=== PATIENT | female | born 1955 | race Caucasian/White ===

== ENCOUNTER 2017-12-14 22:28 | Inpatient (IN) | payer BC ==
[~2017-12-14] VITALS: Ht 162.6 cm; Wt 48.5 kg
[~2017-12-14 22:28] MED LIST: ALBU18HF2; METHADONE PO
[2017-12-14 23:30] VITALS: BP 133/69
[2017-12-14] MEDS ORDERED: VANCOMYCIN 1 GM in IV NS 0.9% 250 ML IV SCH (23:30)
[2017-12-14] MEDS ORDERED: Z GUARD REMEDY 2 OZ OINT TP PRN (23:30)
[2017-12-14] MEDS ORDERED: MORPHINE SULFATE INJ 2 MG/ML DISP.SYRIN IV PRN (23:30)
[2017-12-14] MEDS ORDERED: MAGNESIUM HYDROXIDE 30 ML UDC PO PRN (23:30)
--- NOTE | 2017-12-14 23:30 | NUR ---
RN NOTES RECEIVED PATIENT FROM [facility] FOR DX LEFT LEG ULCER AND INFECTED HARDWARE. AO X 3, ABLE TO MAKE NEEDS KNOWN. NO ACUTE DISTRESS NOTED. DENIES ANY PAIN AT THIS TIME. NEW IV STARTED ON LEFT HAND GAUGE 22. MARIA DE JESUS MIDLINE NOT PATENT WHEN FLUSHED; REMOVED. SKIN ASSESSMENT DONE; DRESSINGS APPLIED TO OPEN AREAS. SAFETY REMINDERS GIVEN. ORIENTED TO ROOM AND UNIT. ON LOW BED WITH BILATERAL UPPER SIDE RAILS UP. CALL DRISCOLL WITHIN EASY REACH. WILL CONTINUE TO MONITOR.
[2017-12-15 00:14] LABS: BASOPHILS # (AUTO) 0.1 /CMM (0.0-0.2); BASOPHILS % (AUTO) 0.7 % (0.0-2.0); EOSINOPHILS % (AUTO) 0.8 % (0.0-6.0); HEMATOCRIT 31 % (33-45); HEMOGLOBIN 10.6 g/dL (11.5-14.8); LYMPHOCYTES % (AUTO) 23.2 % (20.0-44.0); MEAN CORPUSCULAR HGB CONC 35 g/dl (31.0-36.0); MEAN CORPUSCULAR VOLUME 85 fL (82-100); MONOCYTES # (AUTO) 0.7 /CMM (0.1-1.30); MONOCYTES % (AUTO) 7.9 % (2.0-12.0); NEUTROPHILS # (AUTO) 5.7 /CMM (1.8-8.9); NEUTROPHILS % (AUTO) 67.4 % (43.0-81.0); PLATELET COUNT (AUTO) 631 /CMM (150-450); RDW COEFFICIENT OF VARIATION 12.6 (11.5-15.0); RED BLOOD CELL COUNT(AUTO) 3.63 MIL/uL (4.0-5.2); WHITE BLOOD COUNT (AUTO) 8.6 K/uL (4.3-11.0)
[2017-12-15 00:26] LABS: ALBUMIN 1.9 g/dL (3.4-5.0); BILIRUBIN,TOTAL 0.2 mg/dL (0.2-1.0); CALCIUM, SERUM 8.2 mg/dL (8.5-10.1); CREATININE 0.7 mg/dL (0.6-1.3); MAGNESIUM 1.7 mg/dL (1.8-2.4); PHOSPHORUS 2.5 mg/dL (2.5-4.9); TOTAL PROTEIN, SERUM 8.1 g/dL (6.4-8.2)
[2017-12-15 00:29] LABS: POTASSIUM 2.7 mmol/L (3.5-5.1)
--- NOTE | 2017-12-15 02:10 | NUR ---
RN NOTES K LEVEL RELAYED TO DR. OSEGUERA WITH NEW ORDER FOR KCL 40 mEq PO X 2 ONE HOUR APART; NOTED AND CARRIED OUT.
[2017-12-15] MEDS ORDERED: POTASSIUM CHLORIDE 20 MEQ TAB.PRT.SR PO ONE ×4 (02:30→11:00)
--- NOTE | 2017-12-15 02:30 | NUR ---
RN NOTES RELAYED MAG 1.[address] OSEGUERA WITH NO NEW ORDERS.
[2017-12-15] MEDS: IV NS 0.9% 1,000 ML IV PRN ×2 (02:39→23:28)
[2017-12-15] MEDS: ONDANSETRON HCL/PF 4 MG/2 ML VIAL IVP PRN (03:39)
[2017-12-15] MEDS ORDERED: PIPERACILLIN /TAZOBACTAM 3.375 G VIAL IV ONE (04:55)
[2017-12-15] MEDS ORDERED: PIPERACILLIN /TAZOBACTAM 3.375 G in IV D5W 100 ML IV SCH (05:00)
--- NOTE | 2017-12-15 06:30 | NUR ---
RN NOTES PATIENT ASLEEP, EASILY AROUSABLE. RESPIRATIONS EVEN. NO SIGNS OF PAIN NOTED. NEEDS ATTENDED. SAFETY PRECAUTIONS AND COMFORT MEASURES IN PLACE. WILL GIVE REPORT TO DAY SHIFT FOR CONTINUITY OF CARE.
[2017-12-15 06:39] LABS: INR 0.95 (0.87-1.13)
[2017-12-15 06:49] LABS: CREATININE 0.6 mg/dL (0.6-1.3); PHOSPHORUS 3.5 mg/dL (2.5-4.9)
[2017-12-15 06:51] LABS: MAGNESIUM 1.1 mg/dL (1.8-2.4); POTASSIUM 2.6 mmol/L (3.5-5.1)
[2017-12-15 06:55] LABS: THYROID STIMULATING HORMONE 2.178 uIU/mL (0.358-3.74)
[2017-12-15 07:00] LABS: BASOPHILS % (AUTO) 0.5 % (0.0-2.0); EOSINOPHILS % (AUTO) 0.9 % (0.0-6.0); HEMATOCRIT 30 % (33-45); HEMOGLOBIN 10.1 g/dL (11.5-14.8); LYMPHOCYTES # (AUTO) 1.7 /CMM (0.8-4.8); LYMPHOCYTES % (AUTO) 23.6 % (20.0-44.0); MEAN CORPUSCULAR HGB CONC 34 g/dl (31.0-36.0); MEAN CORPUSCULAR VOLUME 85 fL (82-100); MONOCYTES # (AUTO) 0.4 /CMM (0.1-1.30); MONOCYTES % (AUTO) 5.7 % (2.0-12.0); NEUTROPHILS % (AUTO) 69.3 % (43.0-81.0); PLATELET COUNT (AUTO) 555 /CMM (150-450); RDW COEFFICIENT OF VARIATION 13.7 (11.5-15.0); RED BLOOD CELL COUNT(AUTO) 3.55 MIL/uL (4.0-5.2); WHITE BLOOD COUNT (AUTO) 7.2 K/uL (4.3-11.0)
--- NOTE | 2017-12-15 07:20 | NUR ---
RN OPEN NOTES RECEIVED REPORT FROM LOCK SETTER RN. PATIENT IS IN BED. NO SIGNS AND SYMPTOMS OF DISTRESS. BED IN LOW POSITION, LOCKED AND TWO SIDE RAILS ARE UP. CALL LIGHT WITHIN REACH FOR SAFETY. WILL CONTINUE TO MONITOR PATIENT
[2017-12-15] MEDS ORDERED: FEE PK DOSING 1 MIN EA MC ONE (07:30)
--- NOTE | 2017-12-15 07:45 | NUR ---
RN NOTES RELAYED LAB RESULTS (K 2.6; MAG 1.1) TO DR. SAMSON WITH NEW ORDERS FOR MAG 4 GRAMS IV AND KCL 80 mEq PO; NOTED AND CARRIED OUT.
[2017-12-15] MEDS ORDERED: ZINC220C8 PO (07:52)
[2017-12-15] MEDS ORDERED: MAGN64TA13 PO (07:52)
[2017-12-15] MEDS ORDERED: ZOLP5TAB2 PO (07:52)
[2017-12-15] MEDS ORDERED: METH10TA2 PO (07:52)
[2017-12-15] MEDS ORDERED: APIX5TAB PO (07:52)
[2017-12-15] MEDS ORDERED: CHOL100044 PO (07:52)
[2017-12-15] MEDS ORDERED: ASCO500T9 PO (07:52)
[2017-12-15] MEDS ORDERED: MULT-24 PO (07:52)
[2017-12-15] MEDS ORDERED: Magnesium 1GM/D5W 100ML PREMIX PIGGYBACK IV ONE ×4 (08:00→11:00)
[2017-12-15 08:42] VITALS: BP 135/83
[2017-12-15] MEDS: VANCOMYCIN 0.75 GM in IV D5W 250 ML IV SCH ×2 (08:51→20:55)
[2017-12-15] MEDS ORDERED: METHADONE HCL 10 MG TABLET PO SCH (09:00)
--- NOTE | 2017-12-15 09:43 | NUR ---
WOUND CARE CONSULT: PT PRESENTS WITH LEFT LOWER LEG WOUND WITH HARDWARE EXPOSURE AND PURULENT DRAINAGE, LEFT HIP WOUNDS, RT HIP ESCHAR AND LEFT 4TH FINGER ESCHAR, ALL PRESENT ON ADMISSION. RECOMMENDATIONS MADE FOR WOUND CARE/PROTECTION AND DISCUSSED WITH NURSING STAFF. RECOMMEND SURGICAL CONSULT. PT INDEPENDENT WITH BED MOBILITY AND CONTINENT. WILL SEE PRN. DUMONT IN AGREEMENT WITH PLAN OF CARE. Addendum: 12/15/17 at 0944 by CECI ZUÑIGA WNDNU Amended: Links added.
[2017-12-15] MEDS: Magnesium 1GM/D5W 100ML PREMIX 100 ML IV SCH ×4 (10:02→13:54)
--- NOTE | 2017-12-15 10:15 | NUR ---
PATIENT REFUSED PT
[2017-12-15] MEDS: PIPERACILLIN /TAZOBACTAM 3.375 G in IV D5W 50 ML IV SCH ×3 (12:04→23:27)
--- NOTE | 2017-12-15 13:36 | NUR ---
PT AT BEDSIDE TRYING TO CONVINCE PATIENT TO WALK. PATIENT REFUSED PT THE SECOND TIME TODAY
--- NOTE | 2017-12-15 14:09 | NUR ---
Social service consult requested by Dr. Macias for homelessness and methamphetamine use. Pt. is a 62 year old female who was admitted to [facility] for cellulitis. SW and case operator Medina met with pt. bedside. Pt. is alert and oriented x 4. Pt. was cooperative with SW during the assessment. Pt. states she has been homeless for about a year and resides at an encampment by the [employer] and [facility] in [place]. Pt. was residing in an apartment prior to being homeless but was unable to pay the rent. Pt. receives approximately $900 in SSI per month. Pt. is willing to go to a board and care and pay $800 per month. Pt. is also willing to go to [facility] in [place] located at [address] [place] [address] to receive homeless and housing services. (-Fri 8:30AM to 5:00PM). Pt. denies any psychiatric diagnoses. Pt. denies alcohol use. Pt. uses heroin and methamphetamines. Pt. last use heroin a week ago. SW encouraged pt. to go to a drug program, however pt. declined. Pt. completed a drug treatment program in 1989. Pt. has a daughter named Renard in [place]. Pt. was unable to provide her number or any emergency contact at this time. Pt. is independent with her ADL's. Pt. uses a walker at times to ambulate, especially for long distance. SW to provide homeless resources to pt. prior to discharge. No other social service needs are required at this time. SW is available, if needed.
[2017-12-15 16:17] VITALS: BP 155/85
[2017-12-15] MEDS: LACTOBACILLUS RHAMNOSUS GG 1 EACH CAP.SPRINK PO SCH (16:28)
[2017-12-15] MEDS: FENTANYL PF 100MCG/2ML AMPUL IV PRN ×2 (16:29→23:29)
--- NOTE | 2017-12-15 18:49 | NUR ---
RN CLOSING NOTES PATIENT IS IN BED. AWAKE. NO SIGNS AND SYMPTOMS OF DISTRESS. ALL CARE WAS PROVIDED. PATIENT KEPT DRY AND CLEAN. BED IN LOW POSITION, LOCKED AND TWO SIDE RAILS ARE UP. CALL LIGHT WITHIN REACH FOR SAFETY. SURGERY IS ON MONDAY 8:30AM BY DR BIRD. WILL ENDORSE TO FLIGHT ENGINEER HELICOPTER NURSE.
--- NOTE | 2017-12-15 19:10 | NUR ---
MS RN NOTES RECEIVED PT IN BED, AWAKE, A/O X 4. VERBALLY RESPONSIVE. NO SOB NOR DISTRESS NOTED. RESPIRATION IS EVEN AND UNLABORED. IV SITE ON LEFT HAND INTACT AND PATENT, IVF INFUSING WELL. WITH ONGOING TX TO LEFT ANTERIOR LOWER LEG WOUND,LEFT HIP WOUNDS AND RIGHT HIP ESCHARS HIMANSHU WELL. NO C/O PAIN OR DISCOMFORT AT THIS TIME. ALL NEEDS ATTENDED AND MET. KEPT COMFORTABLE. SAFETY PRECAUTIONS OBSERVED. CALL LIGHT WITHIN REACH. WILL CONT TO MONITOR.
[2017-12-15 20:00] VITALS: BP_SYST 140; BP_SYST 150; BP_DIAS 80
[2017-12-15] MEDS: ZOLPIDEM TARTRATE 5 MG TABLET PO PRN (21:24)
[2017-12-15] MEDS: HYDROCODONE/APAP 5/325MG 1 EACH TABLET PO PRN (22:27)
[2017-12-16] MEDS: FENTANYL PF 100MCG/2ML AMPUL IV PRN ×2 (05:09→12:04)
[2017-12-16] MEDS: PIPERACILLIN /TAZOBACTAM 3.375 G in IV D5W 50 ML IV SCH ×4 (05:20→23:53)
[2017-12-16 06:46] LABS: CALCIUM, SERUM 8.1 mg/dL (8.5-10.1); CREATININE 0.7 mg/dL (0.6-1.3)
[2017-12-16 06:55] LABS: POTASSIUM 3.7 mmol/L (3.5-5.1)
--- NOTE | 2017-12-16 06:55 | NUR ---
MS RN NOTES PT IN BED, AWAKE, A/O X 4. VERBALLY RESPONSIVE. NO SOB NOR DISTRESS NOTED. RESPIRATION IS EVEN AND UNLABORED. IV SITE ON LEFT HAND INTACT AND PATENT, IVF INFUSING WELL. WITH ONGOING TX TO LEFT ANTERIOR LOWER LEG WOUND,LEFT HIP WOUNDS AND RIGHT HIP ESCHARS HIMANSHU WELL. NO C/O PAIN OR DISCOMFORT AT THIS TIME. ALL NEEDS ATTENDED AND MET. KEPT COMFORTABLE. SAFETY PRECAUTIONS OBSERVED. CALL LIGHT WITHIN REACH. WILL ENDORSE TO NEXT SHIFT FOR GUMARO.
--- NOTE | 2017-12-16 07:00 | NUR ---
RECEIVED A CALL FROM LAB , NA: 125 ,ENDORSED TO DAY SHIFT KAREN MARTINEZ. Addendum: 12/16/17 at 0716 by LUCILLE MELÉNDEZ RN INCORRECT DOCUMENTATION.
--- NOTE | 2017-12-16 07:00 | NUR ---
RECEIVED A CALL FROM LAB , NA: 120 ,ENDORSED TO DAY SHIFT KAREN MARTINEZ.
--- NOTE | 2017-12-16 07:35 | NUR ---
RN OPEN NOTES RECEIVED REPORT FROM RNFA NURSE. PATIENT IS IN BED, ALERT AND ORIENTED TO NAME, PLACE AND TIME. PATIENT SAID: "I FEEL I AM IN WITHDRAW", WILL ADMINISTER ATIVAN. BED IN LOW POSITION, LOCKED AND TWO SIDE RAILS ARE UP, CALL LIGHT WITHIN REACH FOR SAFETY. WILL CONTINUE TO MONITOR AND ASSESS PATIENT
[2017-12-16] MEDS: LORAZEPAM INJ 2 MG/ML VIAL IV PRN ×2 (07:49→13:49)
[2017-12-16] MEDS: VANCOMYCIN 0.75 GM in IV D5W 250 ML IV SCH ×2 (07:51→20:44)
[2017-12-16] MEDS: LACTOBACILLUS RHAMNOSUS GG 1 EACH CAP.SPRINK PO SCH ×2 (07:53→17:22)
[2017-12-16 08:00] VITALS: BP 142/100
[2017-12-16] MEDS: IV NS 0.9% 1,000 ML IV PRN (15:09)
[2017-12-16 16:00] VITALS: BP 113/80
--- NOTE | 2017-12-16 19:06 | NUR ---
RN CLOSING NOTES PATIENT IS IN BED. AWAKE. NO SIGNS AND SYMPTOMS OF DISTRESS. ALL CARE WAS PROVIDED. PATIENT KEPT DRY AND CLEAN. BED IN LOW POSITION, LOCKED AND TWO SIDE RAILS ARE UP. CALL LIGHT WITHIN REACH FOR SAFETY. WILL ENDORSE TO ACLS NURSE NURSE.
[2017-12-16 20:00] VITALS: BP 114/64
[2017-12-16] MEDS: ZOLPIDEM TARTRATE 5 MG TABLET PO PRN (20:49)
[2017-12-16] MEDS: HYDROCODONE/APAP 5/325MG 1 EACH TABLET PO PRN (20:53)
[2017-12-17] MEDS: FENTANYL PF 100MCG/2ML AMPUL IV PRN ×4 (02:36→20:03)
[2017-12-17] MEDS: PIPERACILLIN /TAZOBACTAM 3.375 G in IV D5W 50 ML IV SCH ×3 (06:21→17:25)
[2017-12-17] MEDS: IV NS 0.9% 1,000 ML IV PRN (06:26)
--- NOTE | 2017-12-17 06:45 | NUR ---
MS RN NOTES AWAKE & RESPONSIVE. NOT IN ANY DISTRESS. NO SOB NOTED. DENIES ANY PAIN OR DISCOMFORT AT THIS TIME. WITH IVF INFUSING WELL. AM CARE DONE. MONITORED ACCORDINGLY. CALL LIGHT WITHIN REACH. BED IN LOWEST POSITION. SR UP X 2 FOR SAFETY. WILL ENDORSE TO NEXT SHIFT.
[2017-12-17 06:58] LABS: CALCIUM, SERUM 7.7 mg/dL (8.5-10.1); CREATININE 0.6 mg/dL (0.6-1.3); POTASSIUM 3.7 mmol/L (3.5-5.1)
--- NOTE | 2017-12-17 07:10 | NUR ---
MS RN NOTES NA LEVEL 115. NOTIFIED BONNIE LARSON GUEST ADVISOR FOR EPIC. BONNIE MADE AWARE RE PT'S CONDITION WITH NEW ORDERS MADE. ORDERS NOTED. REPORT GIVEN TO DAY SHIFT RN FOR CONTINUITY OF CARE.
--- NOTE | 2017-12-17 07:15 | NUR ---
MS RN NOTE RECEIVED REPORT FROM SAM, ENDORSED THAT SODIUM LEVEL IS 115. BIOGEOGRAPHERPAPER GRADER RELAYED LAB VALUE TO NICK NICOLE. ORDERS NOTED AND CARRIED OUT. WILL CONTINUE TO MONITOR FOR SIDE EFFECTS
--- NOTE | 2017-12-17 07:50 | NUR ---
MS RN OPENING NOTE PATIENT IS ALERT AND ORIENTED x4. NO PAIN AT THIS TIME. NO SOB OR DISTRESS NOTED. NPO AT THIS TIME FOR SURGERY THIS MORNING FOR LEFT TIBIA. ABLE TO COMMUNICATE NEEDS. IV INTACT AND PATENT NO REDNESS OR SWELLING NOTED. WILL CONTINUE TO MONITOR THROUGHOUT SHIFT
[2017-12-17] MEDS ORDERED: ANESTHESIA TRAY IN PYXIS 1 EA TRAY MC ONE (07:57)
[2017-12-17] MEDS ORDERED: BACITRACIN 50000 UNITS/VIAL ONE (07:58)
[2017-12-17 08:00] VITALS: BP 116/75
[2017-12-17] MEDS: VANCOMYCIN 0.75 GM in IV D5W 250 ML IV SCH ×2 (08:00→15:40)
--- NOTE | 2017-12-17 08:03 | NUR ---
MS RN NOTE PER MD TO INSERT CAMPBELL CATHETER. PATIENT CONSENTED FOR CAMPBELL INSERTION. PATIENT TOLERATED WELL. CAMPBELL CATHETER DRAINING WELL. WILL MONITOR URINE DRAINAGE AND FOR INFECTION. URINE SAMPLE COLLECTED.
--- NOTE | 2017-12-17 08:26 | NUR ---
MS RN NOTE PATIENT HEADED TO OR FOR SURGERY. PER ELEVATOR CONSTRUCTOR ELECTRIC NURSE BEBA TO BE GIVEN IN OR. UNABLE TO SCAN AT THIS TIME. WILL CONTINUE GUMARO WHEN PATIENT RETURNS FROM SURGERY
[2017-12-17] MEDS: LACTOBACILLUS RHAMNOSUS GG 1 EACH CAP.SPRINK PO SCH ×2 (08:30→16:44)
[2017-12-17] MEDS: HYDROCODONE/APAP 5/325MG 1 EACH TABLET PO PRN (09:32)
--- NOTE | 2017-12-17 09:34 | NUR ---
MS RN NOTE PER PATIENT CAMPBELL CATHETER REMOVED, PATIENT STATED " I TOOK OUT THE CAMPBELL BECAUSE IT WAS BOTHERING ME AND IT BECAME UNCOMFORTABLE". WILL NOTIFY
[2017-12-17 10:25] LABS: CALCIUM, SERUM 7.9 mg/dL (8.5-10.1); CREATININE 0.7 mg/dL (0.6-1.3); POTASSIUM 3.8 mmol/L (3.5-5.1)
[2017-12-17] MEDS: Magnesium 1GM/D5W 100ML PREMIX 100 ML IV SCH ×2 (10:35→11:32)
[2017-12-17] MEDS: SODIUM CHLORIDE 1000 MG TABLET.SOL PO SCH ×3 (10:35→16:48)
--- NOTE | 2017-12-17 10:45 | NUR ---
MS RN NOTE RECEIVED REPORT FROM LAB, SODIUM: 114. REPEATED LAB VALUE ENDORSE TO DR. KEYONNA DUMONT. WILL CONTINUE TO MONITOR FOR SIDE EFFECTS
[2017-12-17] MEDS: ONDANSETRON HCL/PF 4 MG/2 ML VIAL IVP PRN ×2 (10:58→17:25)
--- NOTE | 2017-12-17 11:01 | NUR ---
MS RN NOTE PATIENT HAD TWO EPISODES OF EMESIS NOTED. PATIENT STATED " IT'S FROM THE HEROIN WITHDRAWALS I THINK". PATIENT REQUESTED ANTI-NAUSEA MEDICATION, ZOFRAN 4MG IV GIVEN. WILL MONITOR FOR ANY NAUSEA OR VOMITING THROUGHOUT SHIFT.
[2017-12-17 16:00] VITALS: BP 103/55
--- NOTE | 2017-12-17 18:31 | NUR ---
MS RN CLOSING NOTE PATIENT RESTING AT THIS TIME IN BED LOCKED IN LOWEST POSITION. PATIENT HAD 2 MORE EPISODES OF EMESIS, ZOFRAN 4MG GIVEN. NO PAIN AT THIS TIME. NO SOB OR DISTRESS NOTED. CALL LIGHT WITHIN REACH AT ALL TIMES. SAFETY MEASURES IMPLEMENTED.ABLE TO COMMUNICATE NEEDS. WOUND DRESSINGS CHANGED. ALL DUE MEDICATIONS GIVEN ORDERED. ALL NURSING CARE NEEDS ATTENDED TO. IV INTACT AND PATENT WITH IV FLUIDS RUNNING AT 100 ML/HR. PER OR TO HAVE PATIENT NPO AFTER BREAKFAST. WILL ENDORSE TO MUD TEMPERER NURSE FOR GUMARO
[2017-12-17 19:59] VITALS: BP 101/64
[2017-12-17 20:00] VITALS: BP 101/64
[2017-12-17] MEDS: ZOLPIDEM TARTRATE 5 MG TABLET PO PRN (21:25)
[2017-12-18] MEDS: VANCOMYCIN 0.75 GM in IV D5W 250 ML IV SCH ×3 (00:04→17:34)
[2017-12-18] MEDS: MAG HYDROX/AL HYDROX/SIMETH 30 ML UDC PO PRN ×2 (00:04→14:57)
[2017-12-18] MEDS: PIPERACILLIN /TAZOBACTAM 3.375 G in IV D5W 50 ML IV SCH ×5 (00:05→23:28)
[2017-12-18] MEDS: FENTANYL PF 100MCG/2ML AMPUL IV PRN ×5 (00:29→16:49)
[2017-12-18] MEDS: ACETAMINOPHEN 325 MG TABLET PO PRN (03:07)
[2017-12-18] MEDS: IV NS 0.9% 1,000 ML IV PRN (04:33)
[2017-12-18 07:17] LABS: OSMOLALITY,URINE 413 mOS/kg (340-1090)
--- NOTE | 2017-12-18 07:25 | NUR ---
MS RN OPENING NOTES RECEIVED PATIENT AWAKE IN BED. A/OX4. NO ACUTE DISTRESS, NO SOB NOTED. DENIED PAIN OR DISCOMFORT AT THIS TIME. IV SITE INTACT AND PATENT. KEPT PATIENT SAFE AND COMFORTABLE. COMMODE AT BEDSIDE. SAFETY PRECAUTIONS IN PLACE. BED LOCKED/LOW POSITION, SIDERAILS UPX2, CALL LIGHT IN REACH. WILL CONTINUE TO MONITOR ACCORDINGLY.
[2017-12-18 07:57] LABS: URINE SODIUM, RANDOM 111 mmol/l (40-220)
[2017-12-18] MEDS: LACTOBACILLUS RHAMNOSUS GG 1 EACH CAP.SPRINK PO SCH ×2 (08:05→16:47)
[2017-12-18] MEDS: SODIUM CHLORIDE 1000 MG TABLET.SOL PO SCH ×3 (08:06→16:47)
[2017-12-18 08:11] VITALS: BP 110/72
[2017-12-18 08:12] LABS: CALCIUM, SERUM 7.7 mg/dL (8.5-10.1); CREATININE 0.8 mg/dL (0.6-1.3); POTASSIUM 3.7 mmol/L (3.5-5.1)
--- NOTE | 2017-12-18 08:30 | NUR ---
RN NOTES DR NEWBY ON BEDSIDE, MADE AWARE OF PATIENT'S SODIUM LEVEL OF 116. PER DR NEWBY, CANCEL SURGERY, WILL REFER TO DR MCCOY (NEPHRO). INFORMED DR NEWBY ABOUT PATIENT VOMITS EVERYTIME SHE TAKES SODIUM PILLS.
--- NOTE | 2017-12-18 09:30 | NUR ---
RN NOTES RACHEL JACKSON NP NOTIFIED REGARDING SODIUM LEVEL OF 116. PERRACHEL HE WILL NOTIFY DR BIRD
--- NOTE | 2017-12-18 09:30 | NUR ---
KAREN JACKSON,NICK AND SURGERY NOTIFIED ABOUT PATIENT'S SODIUM LEVEL OF 116. PER RACHEL, HE'LL NOTIFY DR VILLEGAS. Addendum: 12/18/17 at 1104 by ANGELINE MERCADO CORRECTION: DOUBLE ENTRY NOTES. DISREGARD THIS NOTES.
[2017-12-18] MEDS ORDERED: IV Sodium Chloride 3% 500 ML 500 ML IV ONE (12:30)
[2017-12-18 16:05] VITALS: BP 118/71
--- NOTE | 2017-12-18 19:30 | NUR ---
RN NOTE; RECEIVED PT SITTING IN BED. ALERT AND RESPONSIVE. BREATHING EVENLY. NO SOB. NAD. SKIN WARM NAD DRY. DRESSING ON THE LE CDI W/ CONTINUOUS C/O PAIN ON THE SITE. ON ONGOING IVF HYDRATION . HIMANSHU WELL. NEEDS ATTENDED. BED LOW LOCKED. CALL LIGHT WITHIN REACH WILL CONT TO MONITOR ,
--- NOTE | 2017-12-18 19:32 | NUR ---
RN CLOSING NOTES PATIENT IN STABLE CONDITION. NO ACUTE DISTRESS, NO SOB. ALL NEEDS ATTENDED AND PROVIDED. SAFETY MEASURES INITIATED. KEPT PATIENT COMFORTABLE. BED IN LOW/LOCKED POSITION, SIDERAILS UPX2, CALL LIGHT IN REACH. ENDORSED TO NIGHT RN FOR GUMARO.
[2017-12-18 19:46] VITALS: BP 109/65
[2017-12-18 20:00] VITALS: BP 109/65
[2017-12-18] MEDS: ZOLPIDEM TARTRATE 5 MG TABLET PO PRN (21:03)
--- NOTE | 2017-12-18 21:06 | NUR ---
carlosien given as ordered per pt's request for c/o insomnia. will cont to monitor ,
[2017-12-18] MEDS: HYDROCODONE/APAP 5/325MG 1 EACH TABLET PO PRN (21:34)
[2017-12-19] MEDS: VANCOMYCIN 0.75 GM in IV D5W 250 ML IV SCH ×3 (00:31→15:48)
[2017-12-19] MEDS: FENTANYL PF 100MCG/2ML AMPUL IV PRN (01:38)
--- NOTE | 2017-12-19 01:39 | NUR ---
fentanyl given as ordered per pt's request fro c/o severe ble pain. will cont to monitor ,
[2017-12-19] MEDS: HYDROCODONE/APAP 5/325MG 1 EACH TABLET PO PRN ×3 (04:23→13:38)
--- NOTE | 2017-12-19 04:23 | NUR ---
norco administered for pt's c/o 7/10 bilateral leg pain, given with sips of water.
[2017-12-19] MEDS: PIPERACILLIN /TAZOBACTAM 3.375 G in IV D5W 50 ML IV SCH ×3 (06:17→17:19)
[2017-12-19 06:40] LABS: CALCIUM, SERUM 7.9 mg/dL (8.5-10.1); CREATININE 0.6 mg/dL (0.6-1.3); POTASSIUM 4.2 mmol/L (3.5-5.1)
--- NOTE | 2017-12-19 07:30 | NUR ---
MS/RN Patient received Patient received from plant operator/shift supervisor. Remains NPO at this time for possible surgery later today. All needs attended, safety measures in place. Will continue to monitor and ensure safety.
[2017-12-19 08:00] VITALS: BP 113/70
[2017-12-19] MEDS: LACTOBACILLUS RHAMNOSUS GG 1 EACH CAP.SPRINK PO SCH ×2 (08:21→17:19)
[2017-12-19] MEDS: SODIUM CHLORIDE 1000 MG TABLET.SOL PO SCH ×4 (08:21→17:19)
--- NOTE | 2017-12-19 08:37 | NUR ---
MS/RN Robert Jones administered as ordered. Prior to administering, pharmacy called, spoke with Fredy and clarified order as per pharmacy note from yesterday, level to be checked daily. Per Fredy, okay to administer.
--- NOTE | 2017-12-19 09:45 | NUR ---
MS/RN Dr Houston Conard made aware of sodium level only rising to 119 from 116. Per MD, up to medical doctors on wherever surgery can go ahead but highly unlikely.
--- NOTE | 2017-12-19 10:30 | NUR ---
MS/RN Verbal order Order given by Dr Rivers - patient able to eat and drink and then to be NPO from midnight. Surgery cancelled for today as sodium still low at 119.
[2017-12-19] MEDS: MAG HYDROX/AL HYDROX/SIMETH 30 ML UDC PO PRN ×2 (12:04→15:51)
--- NOTE | 2017-12-19 14:36 | NUR ---
MS/RN Refused dressing change Patient refusing dressing change at this time, will attempt to get patient's agreement later this afternoon.
[2017-12-19] MEDS ORDERED: IV Sodium Chloride 3% 500 ML 500 ML IV ONE (15:30)
--- NOTE | 2017-12-19 15:30 | NUR ---
MS/RN S/B Dr Rivers Seen by Dr Rivers - to continue with 3% sodium chloride until sodium level is greater than 125. Blood to be drawn every 4 hours.
[2017-12-19] MEDS: HYDROCODONE/APAP 10/325MG 1 EA TABLET PO PRN ×2 (15:48→20:11)
[2017-12-19 16:00] VITALS: BP 118/68
--- NOTE | 2017-12-19 16:00 | NUR ---
MS/RN Additional new orders Per Fredy Tita:-increase ambien to 10mg -increase norco to 10/325mg.
--- NOTE | 2017-12-19 16:15 | NUR ---
MS/RN Na level Sodium level at 4p - 119.
--- NOTE | 2017-12-19 18:40 | NUR ---
MS/RN End note No changes at this time, all medications administered as ordered. Next sodium level to be drawn at 8p. Will endorse to vice president diversity.
--- NOTE | 2017-12-19 19:30 | NUR ---
RECEIVED PT IN BED AWAKE AND ALERT. BREATHING EVENLY. NO S/S OF WITHDRAWAL NOTED AT THIS TIME. W/ CONSTANT C/O PAIN ON BLE . NOTED W/ INFILTRATED IV SITE ON LAC. NEW IV LINE STARTED ON SENG ON THE THIRD ATTEMPT W/ GOOD BLOOD FLOW AND RESUMED HYDRATION WITH NS 3%. NEEDS ATTENDED. BED LOW LOCKED. CALL LIGHT WITHIN REACH, WILL CONT TO MONITOR ,
[2017-12-19 20:00] VITALS: BP 115/70
--- NOTE | 2017-12-19 20:10 | NUR ---
CRITICAL LAB NA 120: RECEIVED CRITICAL LAB RESULT FOR NA RESULT IS 120, FROM [facility] / [employer], [employer] MANAGER REIMBURSEMENT MADE AWARE AWAITING FOR RESPONSE
--- NOTE | 2017-12-19 20:12 | NUR ---
CRITICAL LAB NA 120: RECEIVED CRITICAL LAB RESULT FOR SODIUM, RESULT IS 120, FROM [facility] / CARBONATING STONE CLEANER, THERE IS ALREADY AN EXISTING ORDER MADE BY MD REGARDING MANAGEMENT OF SODIUM LEVEL, THERE WILL BE LAB DRAW TIMED UNTIL PT'S SODIUM LEVEL REACHED 125, AND ALSO IVF ORDERED FOR THE PT.
--- NOTE | 2017-12-19 20:13 | NUR ---
NORCO 10 GIVEN ORDERED FOR C/O SEVERE BLE PAIN,. WILL CONT TO MONITOR,.
[2017-12-19] MEDS: ZOLPIDEM TARTRATE 5 MG TABLET PO PRN (21:07)
--- NOTE | 2017-12-19 21:15 | NUR ---
HIRALIEN GIVEN ORDERED PER PT'S REQUEST FOR INSOMNIA. WILL CONT TO MONITOR,
[2017-12-20] VITALS (7 sets, daily range): BP systolic 93–117; BP diastolic 58–70
[2017-12-20] MEDS: VANCOMYCIN 0.75 GM in IV D5W 250 ML IV SCH ×4 (00:19→23:57)
[2017-12-20] MEDS: HYDROCODONE/APAP 10/325MG 1 EA TABLET PO PRN ×4 (00:21→20:33)
--- NOTE | 2017-12-20 00:26 | NUR ---
NORCO 10 GIVEN FOR PAIN MANAGEMENT PER PT'S REQUEST. GOOD SKIN CARE PROVIDED AND ALL DRESSINGS WERE CHANGED. PT TOLERATED THE DRESSING CHANGE WELL. WILL CONT TO MONITOR,
--- NOTE | 2017-12-20 00:30 | NUR ---
received Na level of 123. will cont to hydrate the pt with ns3% at 30ml/hr until the level is above 125 and will schedule another blood draw per standing order from dr. hernandez in 4 hours at 0400. iv site remained clean and intact.
[2017-12-20] MEDS: PIPERACILLIN /TAZOBACTAM 3.375 G in IV D5W 50 ML IV SCH ×5 (01:30→23:05)
[2017-12-20 05:07] LABS: CALCIUM, SERUM 8.5 mg/dL (8.5-10.1); CREATININE 0.6 mg/dL (0.6-1.3); POTASSIUM 4.6 mmol/L (3.5-5.1)
--- NOTE | 2017-12-20 05:27 | NUR ---
received Na level of 123. will cont to hydrate the pt with ns3% at 30ml/hr until the level is above 125 and will schedule another blood draw per standing order from dr. hernandez in 4 hours at 0800. will endorse to am shift to f/u with the results.
--- NOTE | 2017-12-20 07:09 | NUR ---
PT IN BED . SLEEPING. BREATHING EVENLY. NO SOB. NAD. NO S/S OF PAIN OR DISCOMFORT AT THIS TIME. ON ONGOING IV NS3% . FOR ANOTHER BLOOD DRAW FOR Na LEVEL AT 0800. IV SITE C/D/I. DRESSING CHANGE DONE . NEEDS MET. CALL LIGHT WITHIN REACH, WILL CONT TO MONITOR AND WILL ENDORSE TO AM SHIFT FOR GUMARO.
--- NOTE | 2017-12-20 07:10 | NUR ---
MSRN OPENING NOTES. PT RECEIVED A&0X3 WATCHING T.V IN BED. PT NPO. R/T POSSIBLE SURG. PT TOLERATING ROOM AIR WITHOUT SOB OR RESP DISTRESS. PT REPORTING PAIN BUT OK TO WAIT FOR ANALGESIA. PT WITH IVC AT R UA G#22 INTACT AND OPERATIONAL WITH IVF PER RX. PT WITH VANCO TROUGH OF 17 AT 1500 /16, CONFIRMED WITH PHARMACY IT'S OK TO GIVE TODAY'S AM VANCO WITHOUT NEW LEVEL. PT DRESSING ENDORSED CHANGE THIS AM AND REMAIN INTACT. PT BED IN LOWEST LOCKED POSITION WITH HANDRAILSX2 AND CALL DRISCOLL WITHIN REACH. PT BRIEFED ON TODAY'S POC AND IS WITHOUT CONCERN OR COMPLAINT AT THIS TIME.
--- NOTE | 2017-12-20 08:30 | NUR ---
MSRN NOTES. PT SODIUM REPORTED TO MD LU AND MD BIRD. ALY REQUESTING STOP OF 3% NS, ORDER PLACED. PELON, REQUESTING PT REMAIN NPO WITH POSSIBLE SURG TIME 1300 BUT APPROVED AM PO MED ADMINISTRATION. ORDERS PLACE OR COMPLETED.
[2017-12-20] MEDS: LACTOBACILLUS RHAMNOSUS GG 1 EACH CAP.SPRINK PO SCH ×2 (09:56→16:39)
[2017-12-20] MEDS: SODIUM CHLORIDE 1000 MG TABLET.SOL PO SCH ×3 (09:56→16:39)
[2017-12-20] MEDS: ACETAMINOPHEN 325 MG TABLET PO PRN ×2 (09:57→18:21)
--- NOTE | 2017-12-20 12:33 | NUR ---
NIA NOTES. PT TO THEATRE.
[2017-12-20] MEDS ORDERED: BACITRACIN 50000 UNITS/VIAL ONE (12:47)
[2017-12-20] MEDS ORDERED: BUPIVACAINE 0.25% 75 MG/30 ML VIAL ONE (12:48)
[2017-12-20] MEDS ORDERED: FENTANYL PF 100MCG/2ML AMPUL ONE (14:18)
--- NOTE | 2017-12-20 14:52 | NUR ---
PT RETURNED FROM THEATRE. PT VITALS:107/64, 89, 18, 97.6, 99%, CONTINUE Q15. PT NOW WITH MIDLINE PLACED AT L UA INTACT AND OPERATIONAL. PT REPORTING 8/10 PAIN TO L LEG SURG SITE. DRESSING REVIEWED AND INTACT. PAPER ORDERS REVIEWED, CONFIRMED FAXED TO PHARMACY, WILL PLACE REMAINING ORDERS. PT COMFORTABLE AND WITHOUT CONCERN OR COMPLAINT AT THIS TIME.
[2017-12-20] MEDS: FENTANYL PF 100MCG/2ML AMPUL IV PRN (18:23)
--- NOTE | 2017-12-20 18:51 | NUR ---
MSRN CLOSING NOTES. PT REMAINS A&0X3 WATCHING T.V IN BED. PT TOLERATING ROOM AIR WITHOUT SOB OR RESP DISTRESS. PT REPORTING PAIN 6/10 AT THIS TIME TO L LEG. ICEPACKSX2 IN SITU. L LEG DRESSING INTACT. PT WITH L UA MIDLINE INTACT AND OPERATIONAL. PT BED IN LOWEST LOCKED POSITION WITH HANDRAILSX2 AND CALL DRISCOLL WITHIN REACH. ALL DAY NURSE DUTIES ATTENDED TO AND PATIENT IS WITHOUT CONCERN OR COMPLAINT AT THIS TIME. WILL ENDORSE TO NIGHT NURSE AT BEDSIDE FOR GUMARO.
--- NOTE | 2017-12-20 19:30 | NUR ---
RN NOTES RECEIVED PATIENT IN BED AWAKE, AO X 3, ABLE TO MAKE NEEDS KNOWN. NO ACUTE DISTRESS NOTED. MONITORED FOR PAIN. MARIA DE JESUS MIDLINE PATENT, INTACT; FLUSHED. LEFT LEG DRESSING INTACT. SAFETY REMINDERS GIVEN. ON LOW BED WITH BILATERAL UPPER SIDE RAILS UP. CALL DRISCOLL WITHIN EASY REACH. WILL CONTINUE TO MONITOR.
[2017-12-20] MEDS: CEFAZOLIN SODIUM 1 GM in IV SODIUM CHLORIDE 0.9% 50 ML IV SCH (20:33)
[2017-12-20] MEDS: ZOLPIDEM TARTRATE 5 MG TABLET PO PRN (21:08)
[2017-12-21] MEDS: HYDROCODONE/APAP 10/325MG 1 EA TABLET PO PRN ×5 (00:50→20:08)
[2017-12-21] MEDS: FENTANYL PF 100MCG/2ML AMPUL IV PRN (04:03)
[2017-12-21] MEDS: CEFAZOLIN SODIUM 1 GM in IV SODIUM CHLORIDE 0.9% 50 ML IV SCH ×2 (04:03→15:40)
[2017-12-21] MEDS: PIPERACILLIN /TAZOBACTAM 3.375 G in IV D5W 50 ML IV SCH ×4 (06:11→23:57)
--- NOTE | 2017-12-21 06:33 | NUR ---
RN NOTES PATIENT ASLEEP, EASILY AROUSABLE. RESPIRATIONS EVEN. NO SIGNS OF PAIN NOTED. DUE MEDS GIVEN WITH NO ASE NOTED. NEEDS ATTENDED. SAFETY PRECAUTIONS AND COMFORT MEASURES IN PLACE. WILL GIVE REPORT TO DAY SHIFT FOR CONTINUITY OF CARE.
[2017-12-21 08:00] VITALS: BP 116/63
[2017-12-21] MEDS: VANCOMYCIN 0.75 GM in IV D5W 250 ML IV SCH ×2 (08:00→17:06)
--- NOTE | 2017-12-21 08:00 | NUR ---
MS 2 RN AM NOTES. PT RECEIVED A&0X3 WATCHING T.V IN BED.WITH IVC AT R UA G#22 INTACT TO KVO INFUSION.PT WITH VANCO TROUGH OF 23 -NOTIFIED PHARMACY.VANCO IV HELD.PT BED IN LOWEST LOCKED POSITION WITH HANDRAILSX2 AND CALL DRISCOLL WITHIN REACH.
[2017-12-21 08:07] LABS: CALCIUM, SERUM 8.3 mg/dL (8.5-10.1); CREATININE 0.7 mg/dL (0.6-1.3); POTASSIUM 4.3 mmol/L (3.5-5.1)
[2017-12-21] MEDS: SODIUM CHLORIDE 1000 MG TABLET.SOL PO SCH ×3 (08:17→17:06)
[2017-12-21] MEDS: LACTOBACILLUS RHAMNOSUS GG 1 EACH CAP.SPRINK PO SCH ×2 (08:17→17:06)
--- NOTE | 2017-12-21 08:17 | NUR ---
HELD VANCO IV.VANCO LEVEL IS 23.NOTIFIED FABRICE,PHARMACIST.
[2017-12-21] MEDS: LORAZEPAM INJ 2 MG/ML VIAL IV PRN (09:58)
[2017-12-21] MEDS ORDERED: VANC1VIA GT (15:23)
[2017-12-21] MEDS ORDERED: Hydrocodone/Apap 10/325MG PO (15:23)
[2017-12-21] MEDS ORDERED: MAG30ORA PO (15:23)
[2017-12-21] MEDS ORDERED: LACT1CAP72 PO (15:23)
[2017-12-21] MEDS ORDERED: SODI100037 PO (15:23)
[2017-12-21 16:00] VITALS: BP 102/61
--- NOTE | 2017-12-21 17:18 | NUR ---
CLARIFIED WITH PHARMACIST,MORRIS AND SEMAJ OK TO GIVE THE VANCO IV SINCE THEY'VE ADJUSTED THE DOSE ALREADY.VANCO LEVEL THIS AM WAS 23.VANCO IV IN AM WAS HELD.
--- NOTE | 2017-12-21 18:23 | NUR ---
PT'S DISCHARGE TO [facility] DUE TO VANCO IV Q 8 HRS FOR 37 DAYS ORDERED UPON DISCHARGE.WILL REFER TO SNF IN AM PER SOCCER BALL ASSEMBLERIVY VILLAR.
--- NOTE | 2017-12-21 19:30 | NUR ---
RN NOTES RECEIVED PATIENT IN BED WITH EYES CLOSED, EASILY AROUSABLE. AO X 3, ABLE TO MAKE NEEDS KNOWN. NO ACUTE DISTRESS NOTED. MONITORED FOR PAIN. MARIA DE JESUS MIDLINE PATENT, INTACT; FLUSHED. LEFT LEG DRESSING INTACT. SAFETY REMINDERS GIVEN. ON LOW BED WITH BILATERAL UPPER SIDE RAILS UP. CALL DRISCOLL WITHIN EASY REACH. WILL CONTINUE TO MONITOR.
[2017-12-21 20:00] VITALS: BP 116/66
[2017-12-21 20:05] VITALS: BP 116/66
[2017-12-21] MEDS: ZOLPIDEM TARTRATE 5 MG TABLET PO PRN (21:14)
[2017-12-22] MEDS: HYDROCODONE/APAP 10/325MG 1 EA TABLET PO PRN ×4 (02:35→19:52)
[2017-12-22] MEDS: VANCOMYCIN 0.75 GM in IV D5W 250 ML IV SCH ×2 (04:50→18:42)
--- NOTE | 2017-12-22 06:00 | NUR ---
RN NOTES PATIENT ASLEEP, EASILY AROUSABLE. RESPIRATIONS EVEN. NO SIGNS OF PAIN NOTED. DUE MEDS GIVEN WITH NO ASE NOTED. NEEDS ATTENDED. KEPT CLEAN, DRY, AND COMFORTABLE. SAFETY PRECAUTIONS AND COMFORT MEASURES IN PLACE. WILL GIVE REPORT TO DAY SHIFT FOR CONTINUITY OF CARE.
[2017-12-22] MEDS: PIPERACILLIN /TAZOBACTAM 3.375 G in IV D5W 50 ML IV SCH ×4 (06:19→23:30)
--- NOTE | 2017-12-22 08:00 | NUR ---
MS 2 RN AM NOTES. PT RECEIVED A&0X3 SLEEPING BUT AROUSABLE IN BED.WITH IVC AT R UA G#22 INTACT TO KVO INFUSION INFUSING WELL.PT IS SO ANXIOUS ALWAYS WANTS TO GET HER NORCO AND ATIVAN AROUND THE CLOCK INSPITE OF EXPLAINING ITS RISKS,BENEFITS AND CONSEQUENCES.EVEN IF THE PT IS SLEEPING MOST OF THE TIME BY THE TIME YOU ARE ABOUT TO GIVE THE MEDS TO THE PT.PT INSISTS TO RECEIVE BOTH MEDS AROUND THE CLOCK.ALSO EXPLAINED THAT HER BP IS LOW 93/55 AND AT RISK FOR HYPOTENSION.PT WOULD WANT TO HAVE HER BP RECHECKED.PT BED IN LOWEST LOCKED POSITION WITH SIDERAILSX2 AND CALL DRISCOLL WITHIN REACH.
[2017-12-22 08:10] VITALS: BP 93/55
[2017-12-22] MEDS: SODIUM CHLORIDE 1000 MG TABLET.SOL PO SCH ×3 (09:15→17:00)
[2017-12-22] MEDS: LACTOBACILLUS RHAMNOSUS GG 1 EACH CAP.SPRINK PO SCH ×2 (09:15→17:00)
[2017-12-22] MEDS: LORAZEPAM INJ 2 MG/ML VIAL IV PRN (10:24)
[2017-12-22 16:00] VITALS: BP 122/70
--- NOTE | 2017-12-22 18:45 | NUR ---
PT SLEEPING COMFORTABLY IN BED ASKING FOR SNACKS CONTINUOUSLY THE MOMENT SHE WAKES.CONSUMED 10 CRESCENCIO CRACKERS,5 JUICES,5 CARTONS OF MILK AND SEVERAL PUDDINGS DURING THE SHIFT.
--- NOTE | 2017-12-22 19:45 | NUR ---
MS RN NOTE: PATIENT RESTING IN BED, NO ACUTE DISTRESS NOTED. BREATHING EVEN AND UNLABORED, NO SOB NOTED. MIDLINE TO MARIA DE JESUS IN PLACE. BED LOCKED AND IN LOWEST POSITION, CALL LIGHT IN REACH. WILL CONTINUE TO MONITOR.
[2017-12-22 20:00] VITALS: BP 115/62
--- NOTE | 2017-12-22 20:00 | NUR ---
MS RN NOTE: PATIENT COMPLAINS OF PAIN TO BOTH HIPS/LEG 03/13, NORCO 10/325MG 1 TAB ORAL GIVEN PER MD ORDER. WILL CONTINUE TO MONITOR.
[2017-12-22] MEDS: ZOLPIDEM TARTRATE 5 MG TABLET PO PRN (21:44)
--- NOTE | 2017-12-22 21:45 | NUR ---
MS RN NOTE: PATIENT REQUEST FOR SLEEPING MEDICATION, AMBIEN 5MG 1 TABS ORAL GIVEN PER MD ORDER. WILL CONTINUE TO MONITOR.
[2017-12-23] MEDS: HYDROCODONE/APAP 10/325MG 1 EA TABLET PO PRN ×4 (02:25→21:55)
--- NOTE | 2017-12-23 02:30 | NUR ---
MS RN NOTE: PATIENT COMPLAINS OF PAIN TO BOTH HIPS/LEG 03/13, NORCO 10/325MG 1 TAB ORAL GIVEN PER MD ORDER. WILL CONTINUE TO MONITOR.
[2017-12-23] MEDS: VANCOMYCIN 0.75 GM in IV D5W 250 ML IV SCH ×2 (05:09→17:48)
[2017-12-23] MEDS: LORAZEPAM INJ 2 MG/ML VIAL IV PRN ×3 (05:14→19:34)
--- NOTE | 2017-12-23 05:20 | NUR ---
MS RN NOTE: PATIENT ANXIOUS AND REQUESTING MEDICATION. ATIVAN 1MG IV GIVEN PER MD ORDER. WILL CONTINUE TO MONITOR.
[2017-12-23] MEDS: PIPERACILLIN /TAZOBACTAM 3.375 G in IV D5W 50 ML IV SCH ×2 (06:23→12:01)
--- NOTE | 2017-12-23 06:30 | NUR ---
MS RN NOTE: PATIENT RESTING IN BED, NO ACUTE DISTRESS NOTED. BREATHING EVEN AND UNLABORED, NO SOB NOTED. MIDLINE TO MARIA DE JESUS IN PLACE. BED LOCKED AND IN LOWEST POSITION, CALL LIGHT IN REACH. WILL ENDORSE TO DAY NURSE TO CONTINUE WITH PLAN OF CARE.
[2017-12-23 06:55] LABS: CALCIUM, SERUM 8.6 mg/dL (8.5-10.1); CREATININE 0.9 mg/dL (0.6-1.3)
--- NOTE | 2017-12-23 07:20 | NUR ---
RN OPEN NOTES RECEIVED REPORT FROM BURLAP ROLL COVERER NURSE. PATIENT IS IN BED WITH HER EYES CLOSED. EASILY AROUSED TO LIGHT TOUCH. NO SIGNS AND SYMPTOMS OF DISTRESS. DENIED PAID. BED IN LOW POSITION, LOCKED AND TWO SIDE RAILS ARE UP . CALL LIGHT WITHIN REACH FOR SAFETY. WILL CONTINUE TO MONITOR PATIENT
[2017-12-23 08:02] VITALS: BP 116/55
[2017-12-23] MEDS: SODIUM CHLORIDE 1000 MG TABLET.SOL PO SCH ×3 (08:29→16:40)
[2017-12-23] MEDS: LACTOBACILLUS RHAMNOSUS GG 1 EACH CAP.SPRINK PO SCH ×2 (08:29→16:40)
[2017-12-23 16:00] VITALS: BP 128/70
--- NOTE | 2017-12-23 18:51 | NUR ---
IVY RASMUSSEN CALLED THAT PATIENT CAN BE DISCHARGE TO [facility] LOCATED AT [address] [place] [id number]. PATIENT NEEDS ANTIBIOTIC PRESCRIPTION PRIOR TO DISCHARGE. PER LETTY HAYNES NEEDS TO COME WRITE THE SCRIPT. PRIOR TO DC, PATIENT TO GET A TAXI VOUCHER FROM NURSING OFFICE. WILL ENDORSE TO DISTRICT SUPERINTENDENT NURSE
--- NOTE | 2017-12-23 19:27 | NUR ---
MS RN CLOSING NOTES PATIENT IS IN STABLE CONDITION. IN NO APPARENT DISTRESS. BEDSIDE RAILS ARE UPX2. IV LINE IS INTACT AND PATENT. BED IS LOCKED AND LOWERED. CALL LIGHT IS WITHIN REACH. WILL ENDORSE CARE TO BRICK BURNER HEAD NURSE FOR GUMARO.
--- NOTE | 2017-12-23 19:35 | NUR ---
MS RN NOTE RECEIVED PATIENT FROM DAY SHIFT, PATIENT IS ALERT AND ORIENTEDX4, NO S/S OF RESPIRATORY DISTRESS AND COMPLAINS OF PAIN ON HER LEG, WILL ADMIN NORCO WHEN IT IS DUE. LEFT UPPER ARM MIDLINE IS PATENT AND INTACT, HL ONLY. SRX2, BED IN LOW POSITION, CALL LIGHT WITHIN REACH, WILL CONTINUE TO MONITOR PATIENT.
[2017-12-23 20:00] VITALS: BP 137/88
--- NOTE | 2017-12-23 21:55 | NUR ---
MS RN NOTE PATIENT COMPLAINS OF PAIN ON HER LEG 03/13, NORCO 10/325 MG GIVEN. WILL REASSESS EFFECTIVENESS.
[2017-12-23] MEDS: ZOLPIDEM TARTRATE 5 MG TABLET PO PRN (22:37)
--- NOTE | 2017-12-24 02:10 | NUR ---
MS RN NOTE PATIENT COMPLAINS OF PAIN ON HER LEG 04/13, NORCO 10/325 MG GIVEN. WILL REASSESS EFFECTIVENESS.
[2017-12-24] MEDS: HYDROCODONE/APAP 10/325MG 1 EA TABLET PO PRN ×4 (02:29→18:38)
[2017-12-24] MEDS: LORAZEPAM INJ 2 MG/ML VIAL IV PRN ×3 (05:36→20:34)
--- NOTE | 2017-12-24 06:50 | NUR ---
MS RN NOTE PATIENT IS RESTING IN BED COMFORTABLY, NO ACUTE EVENT NOTED THROUGHOUT THE SHIFT. LEFT UPPER ARM MIDLINE IS PATENT AND INTACT. WILL ENDORSE TO DAY SHIFT NURSE FOR GUMARO.
--- NOTE | 2017-12-24 07:25 | NUR ---
RN OPEN NOTES RECEIVED REPORT FROM UTILITY BAGGER NURSE. PATIENT IS AWAKE, IN HER BED. NO SIGNS AND SYMPTOMS OF DISTRESS. DENIED PAID. BED IN LOW POSITION, LOCKED AND TWO SIDE RAILS ARE UP . CALL LIGHT WITHIN REACH FOR SAFETY. WILL CONTINUE TO MONITOR PATIENT
[2017-12-24 08:00] VITALS: BP 110/72
[2017-12-24] MEDS: LACTOBACILLUS RHAMNOSUS GG 1 EACH CAP.SPRINK PO SCH ×2 (08:10→16:28)
[2017-12-24] MEDS: LINEZOLID 600 MG TABLET PO SCH ×2 (08:10→20:34)
[2017-12-24] MEDS: SODIUM CHLORIDE 1000 MG TABLET.SOL PO SCH ×3 (08:10→16:29)
[2017-12-24 08:39] LABS: CALCIUM, SERUM 9.2 mg/dL (8.5-10.1); CREATININE 0.7 mg/dL (0.6-1.3); POTASSIUM 4.3 mmol/L (3.5-5.1)
--- NOTE | 2017-12-24 08:45 | NUR ---
PATIENT HAD A BIG BOWEL MOVEMENT AND SHE WAS COVERED BY POOP. PATIENT IS IN THE SHOWER AND ALDO CASTLE IS HELPING HER. CAMILLE CALLED TO CLEAN THE ROOM
[2017-12-24] MEDS ORDERED: HYDR-552 PO (14:07)
--- NOTE | 2017-12-24 15:10 | NUR ---
CALLED AND TEXT CATALINA FROM [facility] AND [facility] AT [phone]. NO ANSWER AND UNABLE TO LEAVE A MESSAGE DUE TO MAILBOX IS FULL. SENT A TEXT TO CALL ME BACK RAFFY FROM THE CHARGE NURSE PHONE AT [facility] 2ND FLOOR
[2017-12-24 16:00] VITALS: BP 116/70
--- NOTE | 2017-12-24 16:54 | NUR ---
ANOTHER UNSUCCESSFUL ATTEMPT CALLING CATALINA FROM [facility] AT [phone].
--- NOTE | 2017-12-24 18:12 | NUR ---
SPOKE WITH CATALINA FROM [facility]. CATALINA WOULD LIKE TO GET THE PATIENT TOMORROW AFTERNOON HE IS NOT READY FOR HER TONIGHT. BISQUE BRUSHER JANN NOTIFIED
--- NOTE | 2017-12-24 19:00 | NUR ---
RN CLOSING NOTES PATIENT IS AWAKE AND RESTING AT BED. BED IN LOW POSITION, LOCKED AND TWO SIDE RAILS ARE UP. CALL LIGHT WITHIN REACH FOR SAFETY. MIDLINE IN INTACT AND PATENT. ORIENTED TO NAME, TIME AND PLACE. ON ROOM AIR, TOLERATING WELL WITH NO SHORTNESS OF BREATH NOTED. ALL NEEDS AND CARE ATTENDED. PATIENT KEPT CLEAN, DRY AND SAFE. D/C IN AM AFTER NOON. WILL ENDORSE TO MULTIFOCAL BUTTON INSPECTOR NURSE.
--- NOTE | 2017-12-24 19:30 | NUR ---
MS RN OPENING NOTES: PATIENT SITTING ON BED, AOX4, ON ROOM AIR, BREATHING EVEN AND UNLABORED. BREATH SOUNDS CLEAR TO AUSCULTATION. APPEARS CALM AND IN NO DISTRESS. DENIES PAIN. MARIA DE JESUS MIDLINE INTACT AND PATENT TO FLUSH. PROVIDED FOR COMFORT AND SAFETY. BED IN LOWEST AND LOCKED POSITION, SIDERAILS UP X 3, CALL LIGHT WITHIN REACH. WILL CONT TO MONITOR.
[2017-12-24 20:00] VITALS: BP 124/70
--- NOTE | 2017-12-24 20:40 | NUR ---
RN NOTES: ADMINISTERED ATIVAN 1 MG IV PRN FOR ANXIETY. VS STABLE. PATIENT ON BED, INSTRUCTED RE FALL RISK.
[2017-12-25] MEDS: ZOLPIDEM TARTRATE 5 MG TABLET PO PRN (00:05)
[2017-12-25] MEDS: HYDROCODONE/APAP 10/325MG 1 EA TABLET PO PRN ×4 (04:13→16:28)
--- NOTE | 2017-12-25 04:20 | NUR ---
RN NOTES: PATIENT COMPLAINED OF 7/10 PAIN OVER LEFT LOWER LEG. ADMINISTERED NORCO 10-325 MG PO. THEN, WOUND CARE DONE OVER LEFT LEG. NOTED INCISION WITH 17 MILLIE ALL INTACT, NO BLEEDING OR PURULENT DISCHARGE NOTED. WILL CONT TO MONITOR.
--- NOTE | 2017-12-25 07:00 | NUR ---
MS RN CLOSING NOTES: PATIENT IN BED, AOX4, ON ROOM AIR, BREAHTING EVEN AND UNLABORED. APPEARS CALM AND IN NO DISTRESS. MARIA DE JESUS MIDLINE INTACT AND PATENT TO FLUSH. DUE MEDS GIVEN. PROVIDED FOR COMFORT AND SAFETY. BED IN LOWEST AND LOCKED POSITION, SIDERAILS UP X 3, CALL LIGHT WITHIN REACH. WILL ENDORSE TO AM RN FOR GUM[place].
--- NOTE | 2017-12-25 07:30 | NUR ---
MS/RN Patient received Patient received from keno attendant. All needs attended, dressing to left lower leg dry and intact. For possible discharge to board and care later this morning. Will continue to monitor and ensure safety.
[2017-12-25 08:00] VITALS: BP 104/67
[2017-12-25] MEDS: LACTOBACILLUS RHAMNOSUS GG 1 EACH CAP.SPRINK PO SCH ×2 (08:07→16:28)
[2017-12-25] MEDS: LINEZOLID 600 MG TABLET PO SCH (08:07)
[2017-12-25] MEDS: SODIUM CHLORIDE 1000 MG TABLET.SOL PO SCH ×3 (08:07→16:28)
--- NOTE | 2017-12-25 08:31 | NUR ---
MS/RN Medications Morning medications administered along with norco 10/325mg for pain scale 8/10 to left lower leg. Will monitor effectiveness.
[2017-12-25 09:42] LABS: CALCIUM, SERUM 9.1 mg/dL (8.5-10.1); CREATININE 0.8 mg/dL (0.6-1.3)
[2017-12-25 16:00] VITALS: BP 106/70
--- NOTE | 2017-12-25 16:30 | NUR ---
MS/upper inspector Patient discharged to board and care in stable condition. All personal belongings accounted for on belongings list, midline and name bands removed. Exit care instructions given to patient along with education which patient has able to verbalize understanding. Prescriptions provided to patient, copies placed in chartEscorted to main lobby by DIRECTOR OF EDUCATION AND TRAINING, discharged to home via taxi.
== END 2017-12-25 18:57 | disposition home or self-care (01) | DRG 320 ==
LOC: MEDSG2 22:28
PROVIDERS: ADMIT Internal Medicine; ATTEND Internal Medicine
PROC: 0QPH04Z Removal of Internal Fixation Device from Left Tibia, Open Approach (ICD-10-PCS; principal; 2017-12-20 13:30)
PROC: 05H633Z Insertion of Infusion Device into Left Subclavian Vein, Percutaneous Approach (ICD-10-PCS; principal; 2017-12-20 13:30)
PROC: B547ZZA Ultrasonography of Left Subclavian Vein, Guidance (ICD-10-PCS; principal; 2017-12-20 13:30)
DX: T84.623A Infection and inflammatory reaction due to internal fixation device of left tibia, initial encounter (principal); E22.2 Syndrome of inappropriate secretion of antidiuretic hormone; E44.0 Moderate protein-calorie malnutrition; L03.116 Cellulitis of left lower limb; E83.42 Hypomagnesemia; F11.20 Opioid dependence, uncomplicated; E87.6 Hypokalemia; K21.9 Gastro-esophageal reflux disease without esophagitis; Y83.1 Surgical operation with implant of artificial internal device as the cause of abnormal reaction of the patient, or of later complication, without mention of misadventure at the time of the procedure; Y92.099 Unspecified place in other non-institutional residence as the place of occurrence of the external cause; Z98.890 Other specified postprocedural states; Z79.899 Other long term (current) drug therapy; D64.9 Anemia, unspecified; F17.200 Nicotine dependence, unspecified, uncomplicated
CPT/HCPCS: 36415; 36569; 71045-TC; 73590-TC; 80048-TC; 80053-TC; 80202-TC; 82746; 82962-TC; 83540-TC; 83735-TC; 83935-TC; 84100-TC; 84295-TC; 84300-TC; 84443-TC; 85025-TC; 85730-TC; 86850-TC; 87040-TC; 87070-TC; 87081-TC; 88300-TC; A4216; A4217; A4606; A6253; A6402; A6403; J0690; J2060; J2405; J2543; J2704; J3010; J3370; J3475; J3490; J7030; J7050; J7060; Z7610

== ENCOUNTER 2025-02-01 14:57 | Inpatient (IN) | payer OTHER, BC ==
[~2025-02-01] VITALS: Ht 160 cm; Wt 51.7 kg
[~2025-02-01 14:57] MED LIST changes: -ALBU18HF2; +APIX5TAB PO; +ASCO-352 PO; +CHOL100044 PO; +HYDR-4384 PO; +LACT1CAP72 PO; +MAG30ORA PO; +MAGN64TA13 PO; +METH10TA2 PO; -METHADONE PO; +MULT-24 PO; +SODI100037 PO; +ZINC1CAP2 PO; +ZOLP5TAB2 PO
[2025-02-01] MEDS: IV NS 0.9% 1,000 ML BAG IV ONE (16:49)
[2025-02-01] MEDS: VANCOMYCIN 1 GM in IV D5W 250 ML IV ONE (16:50)
[2025-02-01] MEDS: CEFEPIME 1 GM in IV D5W 50 ML IV ONE (16:50)
[2025-02-01] MEDS ORDERED: ACETAMINOPHEN ES 500 MG TABLET ONE (16:55)
[2025-02-01 17:00] LABS: HEMATOCRIT 32 % (33-45); HEMOGLOBIN 10.5 g/dL (11.5-14.8); MEAN CORPUSCULAR HEMOGLOBIN 29 PG (26.0-33.0); MEAN CORPUSCULAR HGB CONC 33 g/dl (31.0-36.0); MEAN CORPUSCULAR VOLUME 88 fL (82-100); PLATELET COUNT (AUTO) 255 K/uL (150-450); RED BLOOD CELL COUNT(AUTO) 3.66 MIL/uL (4.0-5.2); RED CELL DISTRIBUTION WIDTH 14.4 % (11.5-15.0); WHITE BLOOD COUNT (AUTO) 17.7 K/uL (4.3-11.0)
[2025-02-01] MEDS: ACETAMINOPHEN ES 500 MG TABLET PO ONE (17:00)
[2025-02-01 17:01] LABS: BASOPHILS # (AUTO) 0.1 K/uL (0.0-0.2); BASOPHILS % (AUTO) 0.6 % (0.0-2.0); EOSINOPHILS # (AUTO) 0.3 K/uL (0.0-0.7); EOSINOPHILS % (AUTO) 1.6 % (0.0-6.0); LYMPHOCYTES # (AUTO) 2.3 K/uL (0.8-4.8); LYMPHOCYTES % (AUTO) 13.1 % (20.0-44.0); MONOCYTES # (AUTO) 1.2 K/uL (0.1-1.30); MONOCYTES % (AUTO) 6.8 % (2.0-12.0); NEUTROPHILS # (AUTO) 13.8 K/uL (1.8-8.9); NEUTROPHILS % (AUTO) 77.9 % (43.0-81.0)
[2025-02-01 17:06] LABS: ALCOHOL, BLOOD < 3 mg/dL (0-10)
[2025-02-01 17:13] LABS: LACTIC ACID 1.9 mmol/L (0.4-2.0)
[2025-02-01 17:17] LABS: INR 1.18 (0.91-1.10); PARTIAL THROMBOPLASTIN TIME 42.7 SEC (24.3-34.3); PROTHROMBIN TIME 12.4 SECS (9.2-11.1)
[2025-02-01] MEDS ORDERED: MAG HYDROX/AL HYDROX/SIMETH 30 ML UDC PO PRN (17:30)
[2025-02-01] MEDS ORDERED: ONDANSETRON HCL/PF 4 MG/2 ML VIAL IVP PRN (17:30)
[2025-02-01] MEDS ORDERED: MAGNESIUM HYDROXIDE 30 ML UDC PO PRN (17:30)
[2025-02-01 17:31] LABS: CALCIUM, SERUM 6.8 mg/dL (8.5-10.1); CREATININE 1.2 mg/dL (0.6-1.3)
[2025-02-01 17:36] LABS: ALBUMIN 1.5 g/dL (3.4-5.0); BILIRUBIN,DIRECT 0.3 mg/dL (0.0-0.2); BILIRUBIN,TOTAL 0.7 mg/dL (0.2-1.0); TOTAL PROTEIN, SERUM 7.2 g/dL (6.4-8.2)
[2025-02-01 17:37] LABS: POTASSIUM 2.7 mmol/L (3.5-5.1)
[2025-02-01] MEDS ORDERED: POTASSIUM CHLORIDE 20 MEQ TAB.PRT.SR PO ONE (17:43)
[2025-02-01] MEDS: POTASSIUM CHLORIDE 20 MEQ TAB.PRT.SR PO ONE (17:47)
[2025-02-01] MEDS: ENOXAPARIN SODIUM 30 MG/0.3 ML DISP.SYRIN SQ SCH (18:22)
[2025-02-01] MEDS: IV NS 0.9% 1,000 ML IV PRN (19:30)
[2025-02-01 20:00] VITALS: BP 98/52; TEMP 97.7; O2SAT 97
[2025-02-02] VITALS: BP 91/56; TEMP 96.8; O2SAT 99
[2025-02-02 04:00] VITALS: BP 102/62; TEMP 97; O2SAT 99
[2025-02-02] MEDS: CEFEPIME 2 GM in IV D5W 100 ML IV SCH (04:15)
[2025-02-02] MEDS: VANCOMYCIN 500 MG in IV D5W 100ml IV SCH (04:25)
[2025-02-02] MEDS: ACETAMINOPHEN 325 MG TABLET PO PRN (04:27)
[2025-02-02 06:46] LABS: BASOPHILS # (AUTO) 0.1 K/uL (0.0-0.2); BASOPHILS % (AUTO) 0.6 % (0.0-2.0); EOSINOPHILS # (AUTO) 0.5 K/uL (0.0-0.7); EOSINOPHILS % (AUTO) 4.2 % (0.0-6.0); HEMATOCRIT 30 % (33-45); HEMOGLOBIN 9.8 g/dL (11.5-14.8); LYMPHOCYTES # (AUTO) 1.9 K/uL (0.8-4.8); LYMPHOCYTES % (AUTO) 15.2 % (20.0-44.0); MEAN CORPUSCULAR HEMOGLOBIN 29 PG (26.0-33.0); MEAN CORPUSCULAR HGB CONC 33 g/dl (31.0-36.0); MEAN CORPUSCULAR VOLUME 86 fL (82-100); MONOCYTES # (AUTO) 0.9 K/uL (0.1-1.30); NEUTROPHILS # (AUTO) 9.1 K/uL (1.8-8.9); PLATELET COUNT (AUTO) 225 K/uL (150-450); RED BLOOD CELL COUNT(AUTO) 3.43 MIL/uL (4.0-5.2); RED CELL DISTRIBUTION WIDTH 14.4 % (11.5-15.0); WHITE BLOOD COUNT (AUTO) 12.4 K/uL (4.3-11.0)
[2025-02-02 08:08] VITALS: BP 111/71; TEMP 98.1; O2SAT 98
[2025-02-02] MEDS: PANTOPRAZOLE 40 MG TABLET.DR PO SCH (08:22)
[2025-02-02 10:48] LABS: EOSINOPHILS % (MANUAL) 7 % (0-4); LYMPHOCYTES % (MANUAL) 11 % (16-48); MONOCYTES % (MANUAL) 4 % (0-11.0); NEUTROPHILS % (MANUAL) 78 (42-76); PLATELET ESTIMATE ADEQUATE
[2025-02-02] MEDS ORDERED: ALPR2TAB7 PO (11:32)
[2025-02-02] MEDS ORDERED: OXYC1TAB12 PO (11:32)
[2025-02-02 12:10] VITALS: BP 120/63; TEMP 98.1; O2SAT 98
[2025-02-02 12:32] LABS: ALKALINE PHOSPHATASE 62 U/L (46-116); ASPARTATE AMINOTRANSFERASE 20 U/L (15-37); BILIRUBIN,DIRECT 0.2 mg/dL (0.0-0.2); BILIRUBIN,TOTAL 0.3 mg/dL (0.2-1.0); CALCIUM, SERUM 6.1 mg/dL (8.5-10.1); CARBON DIOXIDE 23 mmol/L (21-32); CHLORIDE 111 mmol/L (98-107); CREATININE 0.9 mg/dL (0.6-1.3); GLUCOSE 129 mg/dL (74-106); PHOSPHORUS 2.6 mg/dL (2.5-4.9); TOTAL PROTEIN, SERUM 5.9 g/dL (6.4-8.2); UREA NITROGEN, BLOOD 40 mg/dL (7-18)
[2025-02-02 12:44] LABS: ALANINE AMINOTRANSFERASE < 6 U/L (12-78); SODIUM SERUM 142 mmol/L (136-145)
[2025-02-02 12:47] LABS: MAGNESIUM 0.8 mg/dL (1.8-2.4)
[2025-02-02 12:48] LABS: ALBUMIN 1.2 g/dL (3.4-5.0); POTASSIUM 2.8 mmol/L (3.5-5.1)
[2025-02-02 12:49] LABS: LACTIC ACID 2.5 mmol/L (0.4-2.0)
[2025-02-02] MEDS ORDERED: Magnesium 1GM/D5W 100ML PREMIX 100 ML IV SCH ×2 (13:30)
[2025-02-02] MEDS: Magnesium 1GM/D5W 100ML PREMIX 100 ML IV SCH (13:50)
[2025-02-02] MEDS: POTASSIUM CL. PREMIX PERIPHER. 50 ML IV SCH (13:50)
[2025-02-02] MEDS: ALBUMIN 25% 25 GM in PREMIX 1 EA IV SCH (14:26)
[2025-02-02 16:05] VITALS: BP 96/65; TEMP 97.9; O2SAT 99
[2025-02-02] MEDS: IV NS 0.9% 500 ML IV ONE (18:51)
[2025-02-02 20:00] VITALS: BP 97/69; TEMP 99.9; O2SAT 99
[2025-02-03] VITALS: BP 114/69; TEMP 98.6; O2SAT 98
[2025-02-03 04:00] VITALS: BP 121/73; TEMP 98.4; O2SAT 98
[2025-02-03 07:11] LABS: BASOPHILS # (AUTO) 0.1 K/uL (0.0-0.2); BASOPHILS % (AUTO) 0.7 % (0.0-2.0); EOSINOPHILS # (AUTO) 0.3 K/uL (0.0-0.7); EOSINOPHILS % (AUTO) 3.3 % (0.0-6.0); HEMATOCRIT 28 % (33-45); HEMOGLOBIN 9.4 g/dL (11.5-14.8); LYMPHOCYTES # (AUTO) 1.6 K/uL (0.8-4.8); LYMPHOCYTES % (AUTO) 15.8 % (20.0-44.0); MEAN CORPUSCULAR HEMOGLOBIN 29 PG (26.0-33.0); MEAN CORPUSCULAR HGB CONC 34 g/dl (31.0-36.0); MEAN CORPUSCULAR VOLUME 86 fL (82-100); MONOCYTES # (AUTO) 0.6 K/uL (0.1-1.30); MONOCYTES % (AUTO) 6.1 % (2.0-12.0); NEUTROPHILS # (AUTO) 7.3 K/uL (1.8-8.9); NEUTROPHILS % (AUTO) 74.1 % (43.0-81.0); PLATELET COUNT (AUTO) 267 K/uL (150-450); RED BLOOD CELL COUNT(AUTO) 3.21 MIL/uL (4.0-5.2); RED CELL DISTRIBUTION WIDTH 14.8 % (11.5-15.0); WHITE BLOOD COUNT (AUTO) 9.9 K/uL (4.3-11.0)
[2025-02-03 07:24] LABS: LACTIC ACID 1.4 mmol/L (0.4-2.0)
[2025-02-03 07:33] LABS: CALCIUM, SERUM 6.5 mg/dL (8.5-10.1); PHOSPHORUS 3.1 mg/dL (2.5-4.9)
[2025-02-03 08:00] VITALS: BP 119/77; TEMP 98.4; O2SAT 98
[2025-02-03 10:13] LABS: MAGNESIUM 1.2 mg/dL (1.8-2.4)
[2025-02-03 10:14] LABS: POTASSIUM 2.7 mmol/L (3.5-5.1)
[2025-02-03] MEDS: THERAHONEY GEL 1.5 OZ TUBE TP SCH ×2 (10:32→21:05)
[2025-02-03] MEDS: Magnesium 1GM/D5W 100ML PREMIX 100 ML IV ONE (11:44)
[2025-02-03] MEDS: POTASSIUM CL. PREMIX PERIPHER. 50 ML IV SCH (11:44)
[2025-02-03 12:18] VITALS: BP 119/77; TEMP 98.4; O2SAT 99
[2025-02-03 15:11] LABS: HIV-1 p24 ANTIGEN NON REACTIVE (NONREACTIVE); HIV-1/2 ANTIBODY NON REACTIVE (NONREACTIVE)
[2025-02-03 16:05] VITALS: BP 111/73; TEMP 98.6; O2SAT 99
[2025-02-03] MEDS: VITAMINS A AND D 56.7 GM TUBE TP SCH (18:13)
[2025-02-03 20:00] VITALS: BP 94/60; TEMP 99.3; O2SAT 98
[2025-02-04] VITALS: BP 115/70; TEMP 99.5; O2SAT 98
[2025-02-04 04:00] VITALS: BP 124/71; TEMP 99.3; O2SAT 100
[2025-02-04] MEDS: VANCOMYCIN 1 GM in IV D5W 250ml IV SCH (04:58)
[2025-02-04 06:09] LABS: RAPID PLASMA REAGIN QUAL. Non Reactive (Non Reactive)
[2025-02-04 08:00] VITALS: BP 110/68; TEMP 98.4; O2SAT 98
[2025-02-04 12:00] VITALS: BP 110/68; TEMP 98.4; O2SAT 98
[2025-02-04 14:39] LABS: BASOPHILS # (AUTO) 0.2 K/uL (0.0-0.2); BASOPHILS % (AUTO) 1.4 % (0.0-2.0); EOSINOPHILS # (AUTO) 0.3 K/uL (0.0-0.7); EOSINOPHILS % (AUTO) 2.5 % (0.0-6.0); HEMATOCRIT 31 % (33-45); LYMPHOCYTES % (AUTO) 15.7 % (20.0-44.0); MEAN CORPUSCULAR HEMOGLOBIN 28 PG (26.0-33.0); MEAN CORPUSCULAR HGB CONC 33 g/dl (31.0-36.0); MEAN CORPUSCULAR VOLUME 86 fL (82-100); MONOCYTES # (AUTO) 0.9 K/uL (0.1-1.30); MONOCYTES % (AUTO) 7.5 % (2.0-12.0); NEUTROPHILS % (AUTO) 72.9 % (43.0-81.0); PLATELET COUNT (AUTO) 301 K/uL (150-450); RED BLOOD CELL COUNT(AUTO) 3.57 MIL/uL (4.0-5.2); RED CELL DISTRIBUTION WIDTH 14.8 % (11.5-15.0); WHITE BLOOD COUNT (AUTO) 12.4 K/uL (4.3-11.0)
[2025-02-04 14:53] LABS: CREATININE 0.8 mg/dL (0.6-1.3); POTASSIUM 3.4 mmol/L (3.5-5.1)
[2025-02-04 15:22] LABS: CALCIUM, SERUM 5.8 mg/dL (8.5-10.1)
[2025-02-04 16:00] VITALS: BP 107/66; TEMP 99.1; O2SAT 100
[2025-02-04] MEDS ORDERED: LIDOCAINE 2%-EPI 1:100,000 30 ML VIAL TP ONE (16:30)
[2025-02-04 20:00] VITALS: BP 97/65; TEMP 98.4; O2SAT 99
[2025-02-05 04:00] VITALS: BP 96/61; TEMP 97.9; O2SAT 96
[2025-02-05 07:10] LABS: BASOPHILS # (AUTO) 0.1 K/uL (0.0-0.2); BASOPHILS % (AUTO) 0.7 % (0.0-2.0); EOSINOPHILS # (AUTO) 0.4 K/uL (0.0-0.7); EOSINOPHILS % (AUTO) 3.2 % (0.0-6.0); HEMATOCRIT 28 % (33-45); HEMOGLOBIN 9.2 g/dL (11.5-14.8); LYMPHOCYTES # (AUTO) 1.8 K/uL (0.8-4.8); LYMPHOCYTES % (AUTO) 15.8 % (20.0-44.0); MEAN CORPUSCULAR HEMOGLOBIN 29 PG (26.0-33.0); MEAN CORPUSCULAR HGB CONC 33 g/dl (31.0-36.0); MEAN CORPUSCULAR VOLUME 87 fL (82-100); MONOCYTES # (AUTO) 0.9 K/uL (0.1-1.30); MONOCYTES % (AUTO) 7.8 % (2.0-12.0); NEUTROPHILS # (AUTO) 8.1 K/uL (1.8-8.9); NEUTROPHILS % (AUTO) 72.5 % (43.0-81.0); PLATELET COUNT (AUTO) 306 K/uL (150-450); RED BLOOD CELL COUNT(AUTO) 3.23 MIL/uL (4.0-5.2); RED CELL DISTRIBUTION WIDTH 14.8 % (11.5-15.0); WHITE BLOOD COUNT (AUTO) 11.1 K/uL (4.3-11.0)
[2025-02-05 07:31] LABS: CALCIUM, SERUM 6.1 mg/dL (8.5-10.1); CREATININE 0.8 mg/dL (0.6-1.3); PHOSPHORUS 2.6 mg/dL (2.5-4.9)
[2025-02-05 08:00] VITALS: BP 95/58; TEMP 97.9; O2SAT 99
[2025-02-05 08:11] LABS: IRON, SERUM 12 ug/dl (50-175); TOTAL IRON BINDING CAPACITY 111 ug/dl (250-450)
[2025-02-05 08:29] LABS: POTASSIUM 2.7 mmol/L (3.5-5.1)
[2025-02-05 08:30] LABS: MAGNESIUM 0.9 mg/dL (1.8-2.4)
[2025-02-05] MEDS ORDERED: DOXY100C2 PO (08:43)
[2025-02-05] MEDS ORDERED: FERR325T28 PO (08:43)
[2025-02-05] MEDS ORDERED: ASCO500C6 PO (08:43)
[2025-02-05] MEDS ORDERED: ZINC220T3 PO (08:43)
[2025-02-05] MEDS: POTASSIUM CHLORIDE 20 MEQ TAB.PRT.SR PO ONE (09:35)
[2025-02-05] MEDS: FERROUS SULFATE (325 MG) 325 MG/TAB TABLET PO SCH (09:35)
[2025-02-05] MEDS: Magnesium 1GM/D5W 100ML PREMIX 100 ML IV SCH (09:35)
[2025-02-05] MEDS: MAGNESIUM OXIDE 400 MG TABLET PO SCH (09:35)
[2025-02-05] MEDS: POTASSIUM CHLORIDE 10 MEQ/50 ML PREMIXED IVPB FOR PERIPHERAL LINE IV ONE (09:35)
[2025-02-05 16:00] VITALS: BP 95/58; TEMP 97.9; O2SAT 97
[2025-02-05 16:02] LABS: MAGNESIUM 2.1 mg/dL (1.8-2.4); POTASSIUM 4.5 mmol/L (3.5-5.1)
== END 2025-02-05 21:24 | DRG 853 ==
LOC: ER 15:12 → TELE1 17:32 → MEDSG1 02-04 09:39
PROVIDERS: ADMIT Nurse Practitioner Family; ATTEND Nurse Practitioner Family
PROC: 05HA33Z Insertion of Infusion Device into Left Brachial Vein, Percutaneous Approach (ICD-10-PCS; principal; 2025-02-03)
PROC: 0KBP0ZZ Excision of Left Hip Muscle, Open Approach (ICD-10-PCS; 2025-02-04)
PROC: 0KBN0ZZ Excision of Right Hip Muscle, Open Approach (ICD-10-PCS; 2025-02-04)
PROC: 0JB70ZZ Excision of Back Subcutaneous Tissue and Fascia, Open Approach (ICD-10-PCS; 2025-02-04)
PROC: 0JBN0ZZ Excision of Right Lower Leg Subcutaneous Tissue and Fascia, Open Approach (ICD-10-PCS; 2025-02-05)
PROC: 0JBR0ZZ Excision of Left Foot Subcutaneous Tissue and Fascia, Open Approach (ICD-10-PCS; 2025-02-05)
PROC: 0JBP0ZZ Excision of Left Lower Leg Subcutaneous Tissue and Fascia, Open Approach (ICD-10-PCS; 2025-02-05)
PROC: 0JBQ0ZZ Excision of Right Foot Subcutaneous Tissue and Fascia, Open Approach (ICD-10-PCS; 2025-02-05)
DX: A41.9 Sepsis, unspecified organism (principal); E43 Unspecified severe protein-calorie malnutrition; L89.133 Pressure ulcer of right lower back, stage 3; L89.143 Pressure ulcer of left lower back, stage 3; L89.154 Pressure ulcer of sacral region, stage 4; L03.115 Cellulitis of right lower limb; L03.116 Cellulitis of left lower limb; D68.59 Other primary thrombophilia; L97.822 Non-pressure chronic ulcer of other part of left lower leg with fat layer exposed; L97.812 Non-pressure chronic ulcer of other part of right lower leg with fat layer exposed; I96 Gangrene, not elsewhere classified; E87.20 Acidosis, unspecified; R64 Cachexia; N17.9 Acute kidney failure, unspecified; E88.09 Other disorders of plasma-protein metabolism, not elsewhere classified; F17.210 Nicotine dependence, cigarettes, uncomplicated; E87.6 Hypokalemia; E03.9 Hypothyroidism, unspecified; Z79.890 Hormone replacement therapy; S61.411A Laceration without foreign body of right hand, initial encounter; X58.XXXA Exposure to other specified factors, initial encounter; L97.522 Non-pressure chronic ulcer of other part of left foot with fat layer exposed; L97.512 Non-pressure chronic ulcer of other part of right foot with fat layer exposed; L85.3 Xerosis cutis; F11.10 Opioid abuse, uncomplicated; E83.51 Hypocalcemia; J44.9 Chronic obstructive pulmonary disease, unspecified; F10.10 Alcohol abuse, uncomplicated; Y90.0 Blood alcohol level of less than 20 mg/100 ml; E86.0 Dehydration; E83.42 Hypomagnesemia; D50.9 Iron deficiency anemia, unspecified; I10 Essential (primary) hypertension; Z79.01 Long term (current) use of anticoagulants; Z79.899 Other long term (current) drug therapy
CPT/HCPCS: 36410; 36415; 71045-TC; 73130-TC; 73590-TC; 73630-TC; 73700-TC; 80048-TC; 80076-TC; 80202-TC; 83540-TC; 83605-TC; 83735-TC; 84100-TC; 84132-TC; 84439-TC; 84443-TC; 85025-TC; 85730-TC; 86592; 86593; 86803; 87040-TC; 87081-TC; 87806; 97110-TC; 97116-TC; 97530-TC; A4216; A4223; A6213; A6253; A6403; G0378; G0480; J0692; J1650; J3370; J3475; J3480; J3490; J7030; J7040; J7060; P9047